=== PATIENT | female | born 1970 | race Caucasian/White ===

== ENCOUNTER 2016-07-18 11:05 | Day surgery (SDC) | payer BC ==
[2016-07-16 10:36] VITALS: BMI 51.2
[~2016-07-18 11:05] MED LIST: LACTATED RINGERS 1,000 ML IV SCH; LIDOCAINE 1% 20 ML VIAL (10MG/ML) FOR IV START INTRADERMA PRN
[2016-07-18 12:23] VITALS: RESP 16; TEMP 97
[2016-07-18 12:31] LABS: Glucose,Whole Blood 81 mg/dL (75-99)
[2016-07-18] MEDS ORDERED: PROPOFOL 10 MG/ML 20 ML VIAL IV ONE (13:28)
--- NOTE | 2016-07-18 13:34 | P.GSHP ---
History of Present Illness H&P Date: 07/18/16 Chief Complaint: GERD This is a 45-year-old female referred from Dr. Montgomery. She presents today for EGD . She is undergoing workup for sleeve gastrectomy. Her BMI is 51. She's had issues with reflux. Past Medical History Past Medical History: Asthma, GERD/Reflux, Osteoarthritis (OA) Additional Past Medical History / Comment(s): HX Recurring ovarian/uterine tumors - Hysterectomy. Asthma Seasonal. BLOOD PRESSURE FLUCTUATES. HYPOGLYEMIA. TINNITUS. History of Any Multi-Drug Resistant Organisms: None Reported Past Surgical History: Adenoidectomy, Cholecystectomy, Hysterectomy, Orthopedic Surgery, Tonsillectomy Additional Past Surgical History / Comment(s): Total right hip replacement 2013. Right rotator cuff surgery x2. EGD. Past Anesthesia/Blood Transfusion Reactions: Previous Problems w/ Anesthesia, Motion Sickness Additional Past Anesthesia/Blood Transfusion Reaction / Comment(s): LONG TIME TO AWAKEN LONG AGO. Past Psychological History: No Psychological Hx Reported Smoking Status: Former smoker Past Alcohol Use History: Occasional Additional Past Alcohol Use History / Comment(s): SMOKED 15 YEARS, 1 PPD, Quit 1996. Past Drug Use History: None Reported Additional Drug Use History / Comment(s): weekend social drinker - Past Family History Mother Family Medical History: Hypertension Additional Family Medical History / Comment(s): hypoglycemia, anemia, Father Family Medical History: Congestive Heart Failure (CHF), Rheumatoid Arthritis (RA ) Additional Family Medical History / Comment(s): brittle bones secondary to steroid therapy for RA Medications and Allergies Home Medications Medication Instructions Recorded Confirmed Type Cholecalciferol [Vitamin D3] 1,000 unit PO DAILY 06/18/16 07/18/16 History Ibuprofen [Motrin] 200 - 400 mg PO Q6HR PRN 06/18/16 07/18/16 History Primatene 1 tab PO DAILY PRN 07/16/16 07/18/16 History Allergies Allergy/AdvReac Type Severity Reaction Status Date / Time Penicillins Allergy Severe Anaphylaxis Verified 07/18/16 12:22 cephalexin [From Keflex] Allergy Anaphylaxis Verified 07/18/16 12:22 codeine Allergy Anaphylaxis Verified 07/18/16 12:22 phentermine [From Adipex-P] Allergy Anaphylaxis Verified 07/18/16 12:22 morphine AdvReac Nausea & Verified 01/18/17 12:22 Vomiting propoxyphene [From Darvon] AdvReac Hallucinati Verified 07/18/16 12:22 ons Surgical - Exam Vital Signs Temp Pulse Resp BP Pulse Ox 97.0 F L 83 16 154/91 98 07/18/16 12:17 07/18/16 12:17 07/18/16 12:17 07/18/16 12:17 07/18/16 12:17 - General well developed, no distress - Eyes PERRL - ENT normal pinna - Neck no masses - Respiratory normal expansion - Cardiovascular Rhythm: regular - Abdomen Abdomen: soft, non tender Assessment and Plan Plan: GERD Morbid obesity We will perform EGD.
--- NOTE | 2016-07-18 13:43 | P.OP ---
Date of Procedure: 07/18/16 Preoperative Diagnosis: GERD Postoperative Diagnosis: Antral gastritis Hiatal hernia Esophagitis Procedure(s) Performed: EGD Anesthesia: MAC Surgeon: Aaron Herrera Pathology: other (Antrum, esophagus) Condition: stable Disposition: PACU Description of Procedure: The patient's placed on the endoscopy table in the lateral position. She received IV sedation. The gastroscope was oropharynx and passed into the esophagus and into the stomach. Scope was then placed through the pylorus. The first and second portion of the duodenum appeared normal. Scope was then brought back the antrum and this appeared moderately inflamed. A biopsy was performed. Scope was then retroflexed and the remainder some appeared normal. There was a hiatal hernia seen. The GE junction was at 38 cm. The distal esophagus appeared mildly inflamed and a biopsy was performed. The proximal esophagus appeared normal. The scope was withdrawn for patient.
[2016-07-18 13:59] VITALS: BP 165/90; PULSE 82
== END 2016-07-18 14:18 | disposition home or self-care (01) ==
LOC: ORWHC2ENDO 11:05
PROVIDERS: ATTEND Surgery
DX: K20.0 Eosinophilic esophagitis (principal); K44.9 Diaphragmatic hernia without obstruction or gangrene; K29.50 Unspecified chronic gastritis without bleeding; Z87.891 Personal history of nicotine dependence; Z88.5 Allergy status to narcotic agent; Z88.0 Allergy status to penicillin; Z88.8 Allergy status to other drugs, medicaments and biological substances; Z88.1 Allergy status to other antibiotic agents
CPT/HCPCS: 88305; 88342; 43239; J2704

== ENCOUNTER → 2016-07-30 | Outpatient (CLI) | payer BC ==
[2016-07-30 13:19] VITALS: PULSE 78; RESP 18; TEMP 97; BMI 50.3
[2016-07-30 13:23] VITALS: BP 140/90
--- NOTE | 2016-07-30 13:59 | P.HPBAR ---
Bariatric H&P - History & Physicial H&P Date: 07/30/16 History & Physicial: Visit/CC: EGD folow-Up Patient initial contact: Initial weight: 125.872 kg Initial weight in pounds: 277.50 Height: 5 ft 2.5 in Initial BMI: 49.9 Last weight: Current weight: 127.034 kg Current weight in pounds: 280.00 Current BMI: 50.3 [place] body weight (based on NIH guidelines): 51.029 kg Excess body weight loss: The patient is a 45 year-old F who presents for Bariatric Assessment. The patient presents for bariatric follow. She is undergoing workup for sleeve gastrectomy. Patient recently had a EGD performed which showed evidence of antral gastritis as well as GERD. Patient's currently treated with omeprazole. Past Medical History Past Medical History: Asthma, GERD/Reflux, Osteoarthritis (OA) Additional Past Medical History / Comment(s): HX Recurring ovarian/uterine tumors - Hysterectomy. Asthma Seasonal. BLOOD PRESSURE FLUCTUATES. HYPOGLYEMIA. TINNITUS. History of Any Multi-Drug Resistant Organisms: None Reported Past Surgical History: Adenoidectomy, Cholecystectomy, Hysterectomy, Orthopedic Surgery, Tonsillectomy Additional Past Surgical History / Comment(s): Total right hip replacement 2013. Right rotator cuff surgery x2. EGD. Past Anesthesia/Blood Transfusion Reactions: Previous Problems w/ Anesthesia, Motion Sickness Additional Past Anesthesia/Blood Transfusion Reaction / Comm: LONG TIME TO AWAKEN LONG AGO. Past Psychological History: No Psychological Hx Reported Smoking Status: Former smoker Past Alcohol Use History: Occasional Additional Past Alcohol Use History / Comment(s): SMOKED 15 YEARS, 1 PPD, Quit 1996. Past Drug Use History: None Reported Additional Drug Use History / Comment(s): weekend social drinker - Past Family History Mother Family Medical History: Hypertension Additional Family Medical History / Comment(s): hypoglycemia, anemia, Father Family Medical History: Congestive Heart Failure (CHF), Rheumatoid Arthritis (RA ) Additional Family Medical History / Comment(s): brittle bones secondary to steroid therapy for RA Surgical - Exam Vital Signs Temp Pulse Resp BP 97.0 F L 78 18 140/90 07/30/16 13:16 07/30/16 13:16 07/30/16 13:16 07/30/16 13:16 - General well developed, no distress - Eyes PERRL - ENT normal pinna - Neck no masses - Respiratory normal expansion - Cardiovascular Rhythm: regular - Abdomen Abdomen: soft, non tender Bariatric Assessment & Plan Plan: Morbid obesity with BMI 51. Patient will be scheduled for her sleeve gastrectomy in August. She will undergo psychologiic consultations month. Bariatric Checklist Checklist: Plan: Checklist: EGD: 1. Hiatal hernia: 2. H. Pylori: HgbA1c: Vitamin D: Smoking: Former smoker Primary care physician referral: miller (ubly) Psychiatry clearance: Cardiology clearance: Sleep study: Diet journal: VTE risk score: VTE risk level: Rehab needs at discharge:
== END | disposition home or self-care (01) ==
LOC: BARWHC3 12:53
PROVIDERS: ATTEND Surgery
DX: Z01.812 Encounter for preprocedural laboratory examination (principal); E66.01 Morbid (severe) obesity due to excess calories; Z68.43 Body mass index [BMI] 50.0-59.9, adult; K29.70 Gastritis, unspecified, without bleeding; K21.9 Gastro-esophageal reflux disease without esophagitis; Z79.899 Other long term (current) drug therapy; Z87.891 Personal history of nicotine dependence
CPT/HCPCS: 99211

== ENCOUNTER → 2016-09-10 | Outpatient (CLI) | payer BC ==
[2016-09-10 12:45] VITALS: BMI 50.2
== END | disposition home or self-care (01) ==
LOC: BARWHC3 08:37
PROVIDERS: ATTEND Surgery
DX: E66.01 Morbid (severe) obesity due to excess calories (principal); Z71.3 Dietary counseling and surveillance; Z68.43 Body mass index [BMI] 50.0-59.9, adult
CPT/HCPCS: 97804

== ENCOUNTER → 2016-09-10 | Outpatient (CLI) | payer BC ==
[2016-09-10 12:17] LABS: EKG EKG PERFORMED
[2016-09-10 12:48] LABS: Basophils # (A) 0.1 k/uL (0-0.2); Basophils % (A) 1 %; CH 29.6; CHCM 33.5; Eosinophils # (A) 0.2 k/uL (0-0.7); Eosinophils % (A) 2 %; HDW 2.78; HGB 14.4 gm/dL (11.4-16.0); Luc # (Auto) 0.33; Luc % (Auto) 4; Lymphocytes # (A) 2.5 k/uL (1.0-4.8); Lymphocytes % (A) 32 %; MCH 29.1 pg (25.0-35.0); MCHC 32.7 g/dL (31.0-37.0); MCV 89.1 fL (80.0-100.0); Monocytes # (A) 0.3 k/uL (0-1.0); Monocytes % (A) 3 %; Neutrophils # (A) 4.6 k/uL (1.3-7.7); Neutrophils % (A) 58 %; RBC 4.94 m/uL (3.80-5.40); WBC 7.9 k/uL (3.8-10.6)
[2016-09-10 13:00] LABS: ALT 43 U/L (9-52); AST 29 U/L (14-36); Alkaline Phosphatase 116 U/L (38-126); Anion Gap 13 mmol/L; Blood Urea Nitrogen 19 mg/dL (7-17); Calcium 10.1 mg/dL (8.4-10.2); Carbon Dioxide 28 mmol/L (22-30); Chloride 101 mmol/L (98-107); Glucose 96 mg/dL (74-99); Non-African American GFR(MDRD) >60 (>60 ml/min/1.73 sqM); Potassium 4.6 mmol/L (3.5-5.1); Sodium 142 mmol/L (137-145); Total Bilirubin 0.8 mg/dL (0.2-1.3); Total Protein 8.3 g/dL (6.3-8.2)
[2016-09-10 13:48] LABS: Hemoglobin A1C 5.5 % (4.2-6.1)
== END | disposition home or self-care (01) ==
LOC: LABPAT 12:08
PROVIDERS: ATTEND Surgery
DX: Z01.818 Encounter for other preprocedural examination (principal)
CPT/HCPCS: 80053; 83036; 85025; 93005

== ENCOUNTER 2016-09-24 06:34 | Inpatient (IN) | payer BC ==
[2016-09-17 11:34] VITALS: BMI 50.5
[~2016-09-24 06:34] MED LIST changes: +ACETAMINOPHEN TAB 500 MG TAB PO ONE; +CLINDAMYCIN 900 MG in DEXTROSE 5% IN WATER 50 ML IVPB ONE; +DEXAMETHASONE SOD PHOSPHATE 10 MG/ML 1 ML VIAL IV ONE; +ENOXAPARIN 40 MG/0.4 ML SYRINGE SQ ONE; +GENTAMICIN 400 MG in SODIUM CHLORIDE 0.9% 100 ML IVPB ONE; -LIDOCAINE 1% 20 ML VIAL (10MG/ML) FOR IV START INTRADERMA PRN; +MIDAZOLAM 2 MG/2 ML VIAL IV PRN; +ONDANSETRON 4 MG/2 ML VIAL IVP ONE; +SCOPOLAMINE 1.5MG/72HR PATCH TRANSDERM ONE; +fentaNYL (PF) 50 MCG/ML 2 ML AMP IV PRN
[2016-09-24] MEDS ORDERED: LIDOCAINE 1% 20 ML VIAL (10MG/ML) FOR IV START IV ONE (07:00)
[2016-09-24 07:01] LABS: Glucose,Whole Blood 91 mg/dL (75-99)
[2016-09-24] MEDS ORDERED: METHYLENE BLUE 15 MG in SODIUM CHLORIDE 0.9% 500 ML IRRIGATION ONE (07:08)
[2016-09-24] MEDS ORDERED: METHYLENE BLUE 10 MG/ML 1 ML VIAL IRRIGATION ONE (07:32)
[2016-09-24] MEDS ORDERED: BUPIVACAIN-EPI 0.25%-1:200,000 30 ML VIAL SQ ONE ×2 (07:33)
--- NOTE | 2016-09-24 07:54 | P.GSHP ---
History of Present Illness H&P Date: 09/24/16 Chief Complaint: Morbid obesity This is a 45-year-old female who presents today for laparoscopic sleeve gastrectomy. Patient has had lifetime problems morbid obesity. Her BMI is 47. She presents today for laparoscopic sleeve gastrectomy. Patient's aware the risks of surgery including conversion to open procedure and injury to the stomach, liver and spleen. She is also aware of risk of gastric staple line disruption, bleeding or perforation. - Constitutional Constitutional: Reports as per HPI Past Medical History Past Medical History: Asthma, GERD/Reflux, Osteoarthritis (OA) Additional Past Medical History / Comment(s): HX Recurring ovarian/uterine tumors, Asthma Seasonal. HYPOGLYEMIA. TINNITUS. ocular migraines History of Any Multi-Drug Resistant Organisms: None Reported Past Surgical History: Adenoidectomy, Cholecystectomy, Hysterectomy, Orthopedic Surgery, Tonsillectomy Additional Past Surgical History / Comment(s): Total right hip replacement 2013. Right rotator cuff surgery x2. EGD. Past Anesthesia/Blood Transfusion Reactions: Previous Problems w/ Anesthesia, Motion Sickness Additional Past Anesthesia/Blood Transfusion Reaction / Comment(s): LONG TIME TO AWAKEN LONG AGO. Past Psychological History: No Psychological Hx Reported Smoking Status: Former smoker Past Alcohol Use History: Occasional Additional Past Alcohol Use History / Comment(s): SMOKED 15 YEARS, 1 PPD, Quit 1996. Past Drug Use History: None Reported Additional Drug Use History / Comment(s): weekend social drinker - Past Family History Mother Family Medical History: Hypertension Additional Family Medical History / Comment(s): hypoglycemia, anemia, Father Family Medical History: Congestive Heart Failure (CHF), Rheumatoid Arthritis (RA ) Additional Family Medical History / Comment(s): brittle bones secondary to steroid therapy for RA Medications and Allergies Home Medications Medication Instructions Recorded Confirmed Type Cholecalciferol [Vitamin D3] 1,000 unit PO DAILY 06/18/16 09/17/16 History Ibuprofen [Motrin] 200 - 400 mg PO HS PRN 06/18/16 09/17/16 History Primatene 1 tab PO DAILY PRN 07/16/16 09/17/16 History Allergies Allergy/AdvReac Type Severity Reaction Status Date / Time Penicillins Allergy Severe Anaphylaxis Verified 09/17/16 11:03 cephalexin [From Keflex] Allergy Anaphylaxis Verified 09/17/16 11:03 codeine Allergy Anaphylaxis Verified 09/17/16 11:03 phentermine [From Adipex-P] Allergy Anaphylaxis Verified 09/17/16 11:03 morphine AdvReac Nausea & Verified 09/17/16 11:03 Vomiting propoxyphene [From Darvon] AdvReac Hallucinati Verified 09/17/16 11:03 ons Surgical - Exam Vital Signs Temp Pulse Resp BP Pulse Ox 97.5 F L 85 18 120/77 99 09/24/16 06:51 09/24/16 06:51 09/24/16 06:51 09/24/16 06:51 09/24/16 06:51 BMI 47 - General well developed, no distress - Eyes PERRL - ENT normal pinna - Neck no masses - Respiratory normal expansion - Cardiovascular Rhythm: regular - Abdomen Abdomen: soft, non tender Assessment and Plan Plan: Morbid obesity. We'll perform laparoscopic sleeve gastrectomy.
[2016-09-24] MEDS ORDERED: NEOSTIGMINE 1 MG/ML 10 ML VIAL ONE (07:59)
[2016-09-24] MEDS ORDERED: GLYCOPYRROLATE 0.2 MG/ML 2 ML VIAL ONE (07:59)
[2016-09-24] MEDS ORDERED: SUCCINYLCHOLINE CHLORIDE 100 MG/5 ML SYR IV ONE (07:59)
[2016-09-24] MEDS ORDERED: PHENYLEPHRINE-0.9% NACL SYG 1 MG/10 ML SYRINGE ONE (07:59)
[2016-09-24] MEDS ORDERED: PROPOFOL 10 MG/ML 20 ML VIAL IV ONE (07:59)
[2016-09-24] MEDS ORDERED: LIDOCAINE 1% INJ 10MG/ML (20 ML MDV) ONE (07:59)
[2016-09-24] MEDS ORDERED: ROCURONIUM BROMIDE 10 MG/ML 10 ML VIAL IV ONE (07:59)
[2016-09-24] MEDS ORDERED: fentaNYL (PF) 50 MCG/ML 2 ML AMP ONE (07:59)
[2016-09-24] MEDS ORDERED: MIDAZOLAM 2 MG/2 ML VIAL ONE (07:59)
[2016-09-24] MEDS ORDERED: LACTATED RINGERS 1,000 ML IV ONE (08:45)
[2016-09-24] MEDS ORDERED: NALOXONE 0.4 MG/ML 1 ML VIAL IV PRN (09:17)
--- NOTE | 2016-09-24 09:17 | P.OP ---
Date of Procedure: 09/24/16 Preoperative Diagnosis: Morbid obesity BMI 47 Postoperative Diagnosis: Morbid obesity Adhesions Procedure(s) Performed: Laparoscopic sleeve gastrectomy Laparoscopic lysis of adhesions Anesthesia: ANDREE Surgeon: Aaron Herrera Estimated Blood Loss (ml): 5 Pathology: other (Gastric remnant) Condition: stable Disposition: PACU Description of Procedure: The patient's placed the operative table in the supine position. She received IV sedation. She then received general anesthesia. Her abdomen was prepped and draped usual sterile fashion after the placement was placed in dorsal 5 position. The skin incision sites were anesthetized 1% local Xylocaine. The skin was incised in the left lateral position and then using a 5 mm blade less trocar under direct visitation the peritoneal cavity is entered. The abdomen was insufflated and then after adequate insufflation the laparoscope was placed back the pleural cavity. The patient had a previous low midline incision there were adhesions noted in the upper abdomen. Next a 5 mm trocar was placed in the left epigastric position and then using the Harmonic scissors the adhesions in the right lateral position and midline area were lysed. Approximately 15 minutes of operative time used to lyse adhesions. Next a 5 mm trocar was placed in the right lateral position and then a 15 mm trocar was placed supraumbilical position and another 5 mm trocar was placed in the right epigastric position. The left lateral lobe of liver was retracted. The camera was placed into the left upper quadrant position. And then the stomach was visualized. The greater curvature stomach was then dissected using the Harmonic scissors. The Harmonic scissors were used to lyse the greater omentum and divided short gastric vessels. Curvature stomach. The dissection occurred a prostate 5 cm from the pylorus and was extended to the level of the left lulú. The stomach was completely mobilized. And then the 40-Kazakh bougie dilator was placed the oropharynx and passed into the esophagus by the COIN COLLECTOR. The sleeve gastrectomy was performed by sequential firings of the echelon stapler. Seam guard buttress material was used. The gastric remnant was then brought up through the 15 mm trocar site. The stomach was then insufflated with methylene blue normal saline. There is no infection extravasation. The 15 mm trocar site was then closed. Was done using a Milo Louis suture passer and 0 Vicryl suture. The wound was then irrigated. The skin was closed interrupted 3-0 Monocryl suture. Dermabond was applied. Patient was sent to recovery room stable condition.
[2016-09-24] MEDS: HYDROmorphone 1 MG/ML 1 ML SYRINGE IVP ONE ×2 (09:36→10:10)
[2016-09-24] MEDS: ALBUTEROL NEBULIZED 2.5 MG/3 ML INHALATION SCH ×3 (11:16→19:53)
[2016-09-24] MEDS: ONDANSETRON 4 MG/2 ML VIAL IVP PRN ×2 (13:40→22:50)
[2016-09-24] MEDS: HYDROmorphone 1 MG/ML 1 ML SYRINGE IVP PRN ×3 (13:40→22:51)
[2016-09-24] MEDS: 0.9% NACL WITH KCL 20 MEQ/L 1,000 ML IV SCH ×3 (13:40→23:50)
[2016-09-25] MEDS ORDERED: ACETAMINOPHEN IV (For NPO) 1,000 MG in EMPTY BAG 1 BAG IVPB STA (07:19)
[2016-09-25 07:41] LABS: Basophils % (A) 0 %; CH 29.1; CHCM 32.9; Eosinophils % (A) 0 %; HCT 38.5 % (34.0-46.0); HDW 2.59; HGB 12.6 gm/dL (11.4-16.0); Luc # (Auto) 0.19; Luc % (Auto) 2; Lymphocytes # (A) 1.5 k/uL (1.0-4.8); Lymphocytes % (A) 13 %; MCH 29.1 pg (25.0-35.0); MCHC 32.7 g/dL (31.0-37.0); MCV 88.9 fL (80.0-100.0); Mean Platelet Volume 8.1; Monocytes # (A) 0.5 k/uL (0-1.0); Monocytes % (A) 4 %; Neutrophils # (A) 9.4 k/uL (1.3-7.7); Neutrophils % (A) 81 %; RBC 4.33 m/uL (3.80-5.40); RDW 13.4 % (11.5-15.5); WBC 11.6 k/uL (3.8-10.6); WBC (Perox) 12.15
[2016-09-25 07:49] LABS: Anion Gap 11 mmol/L; Blood Urea Nitrogen 13 mg/dL (7-17); Calcium 9.1 mg/dL (8.4-10.2); Carbon Dioxide 25 mmol/L (22-30); Chloride 105 mmol/L (98-107); Magnesium 1.8 mg/dL (1.6-2.3); Non-African American GFR(MDRD) >60 (>60 ml/min/1.73 sqM); Phosphorous 3.1 mg/dL (2.5-4.5); Potassium 4.6 mmol/L (3.5-5.1); Sodium 141 mmol/L (137-145)
[2016-09-25] MEDS: ALBUTEROL NEBULIZED 2.5 MG/3 ML INHALATION SCH ×2 (07:56→10:55)
[2016-09-25] MEDS ORDERED: ENOXAPARIN 40 MG/0.4 ML SYRINGE SQ SCH (09:00)
[2016-09-25] MEDS ORDERED: PANTOPRAZOLE 40 MG/10 ML VIAL IV SCH (09:00)
--- NOTE | 2016-09-25 09:15 | FL ---
EXAMINATION TYPE: FL UGI DATE OF EXAM: 09/25/2016 8:42 AM LIMITED UGI: CLINICAL HISTORY: Morbid Obesity, gastric sleeve surgery yesterday. TECHNIQUE: Limited esophagram is performed utilizing 20 oz of Omnipaque 350. A total of 67 seconds o f fluoroscopic time was utilized during procedure. COMPARISON: None. FINDINGS: The patient swallowed contrast without difficulty or delay. Esophageal peristalsis and mo tility are within normal limits. There is mild delay of flow of contrast along the diaphragmatic hia tus into proximal gastric sleeve. There is mild delay of flow from distal sleeve into pylorus and duo denal sweep. Patient has some nausea throughout. There is no evidence of contrast extravasation to tsai ggest leak. Cholecystectomy clips are noted. IMPRESSION: No evidence of leak or significant obstruction status post gastric sleeve surgery yesterd ay.
[2016-09-25 09:52] VITALS: BP 148/87; RESP 15; TEMP 98.6
[2016-09-25 11:27] VITALS: PULSE 80
[2016-09-25] MEDS: 0.9% NACL WITH KCL 20 MEQ/L 1,000 ML IV SCH (11:58)
--- NOTE | 2016-09-27 07:07 | CONS ---
DATE OF CONSULTATION: DATE OF SERVICE: 09/24/2016 CHIEF COMPLAINT: A 45-year-old, status post gastric sleeve for medical management consult. She is having oxygen levels low at 92% on 2 L at this time. She has a history of asthma. Otherwise is pretty much healthy at home. Review of systems negative except for as mentioned in HPI. MEDICATIONS: Please see list. PHYSICAL EXAM: O2 sat is 92% on 2 L. CARDIOVASCULAR: S1, S2. LUNGS: Mild wheezes x4. Decreased breath sounds at the base. HEMATOLOGIC: Negative Homans. VASCULAR: Normal dorsalis pedis, posterior tibial and radial pulse. NEUROLOGIC: Alert and oriented x3. PSYCH: Fair mood and affect. ASSESSMENT: 1. Status post gastric sleeve. 2. Obesity. 3. Acute hypoxemia. Will do updraft treatments as needed with albuterol. Continue to blow into incentive spirometry. Will monitor her closely due to her low oxygen levels on 2 L.
--- NOTE | 2016-09-27 07:13 | PN ---
SUBJECTIVE: A 45-year-old white female. She is up ambulating today. Her ( ) chest is improved. CARDIOVASCULAR: S1 and S2. LUNGS: Clear. Oxygen level is in the high 90s on room air now. ASSESSMENT: Hypoxemia in postoperative ( ) was improved. Home medicines will be continued and started. She will be sent home today most likely as diet is advanced and she will continue to ambulate. Thank you Dr. Herrera.
--- NOTE | 2016-12-14 12:59 | P.DS ---
Providers Date of admission: 09/24/16 06:34 Expected date of discharge: 09/25/16 Attending physician: Aaron Herrera Consults: 09/24/16 09:17 Consult Physician Routine Consulting Provider: Pancho Liriano Consult Reason/Comments: Medical management Do you want consulting provider notified?: Yes Primary care physician: Stated None Hospital Course: Is a 38-year-old female who underwent laparoscopic sleeve gastrectomy. Patient' s postoperative stay was unremarkable. Please see hospital chart for details. Procedures: Deepak sleeve gastrectomy Patient Condition at Discharge: Good Plan - Discharge Summary New Discharge Prescriptions: New Omeprazole [PriLOSEC] 40 mg PO DAILY #30 capsule. Ondansetron Odt [Zofran ODT] 8 mg PO Q8HR #20 tab Sucralfate [Carafate] 1 gm PO TID #90 tablet Acetaminophen Tab [Tylenol] 1,000 mg PO Q6HR #56 tablet Continue Cholecalciferol [Vitamin D3] 1,000 unit PO DAILY Primatene 1 tab PO DAILY PRN PRN Reason: ASTHMA SX Discontinued Ibuprofen [Motrin] 200 - 400 mg PO HS PRN PRN Reason: Pain Discharge Medication List Cholecalciferol [Vitamin D3] 1,000 unit PO DAILY 06/18/16 [History] Primatene 1 tab PO DAILY PRN 07/16/16 [History] Omeprazole [PriLOSEC] 40 mg PO DAILY #30 capsule. 09/24/16 [Rx] Ondansetron Odt [Zofran ODT] 8 mg PO Q8HR #20 tab 09/24/16 [Rx] Sucralfate [Carafate] 1 gm PO TID #90 tablet 09/24/16 [Rx] Acetaminophen Tab [Tylenol] 1,000 mg PO Q6HR #56 tablet 09/25/16 [Rx] Follow up Appointment(s)/Referral(s): Pancho Liirano MD [STAFF PHYSICIAN] - 10/01/16 1:30 pm Aaron Herrera MD [STAFF PHYSICIAN] - 10/08/16 2:40 pm (In the bariatric center ) Patient Instructions/Handouts: Laparoscopic Sleeve Gastrectomy (DC) Activity/Diet/Wound Care/Special Instructions: No heavy lifting, pushing, or pulling items greater than 10 pounds. Bariatric diet. No caffeinated beverages or straws. Shower daily, no soaking in bath tubs, pools, or hot tubs. No driving while taking pain medication. Notify surgeon with any signs or symptoms of infection, increased pain, or not tolerating diet. Discharge Disposition: HOME SELF-CARE
== END 2016-09-25 14:30 | disposition home or self-care (01) | DRG 621 ==
LOC: 2ORWHC 06:34 → 3SUR 09:09
PROVIDERS: ADMIT Surgery; ATTEND Surgery
PROC: 0DB64Z3 Excision of Stomach, Percutaneous Endoscopic Approach, Vertical (ICD-10-PCS; principal; 2016-09-24 07:40)
DX: E66.01 Morbid (severe) obesity due to excess calories (principal); J45.909 Unspecified asthma, uncomplicated; K66.0 Peritoneal adhesions (postprocedural) (postinfection); R09.02 Hypoxemia; K21.9 Gastro-esophageal reflux disease without esophagitis; M19.90 Unspecified osteoarthritis, unspecified site; Z82.49 Family history of ischemic heart disease and other diseases of the circulatory system; Z96.641 Presence of right artificial hip joint; Z87.891 Personal history of nicotine dependence; Z68.42 Body mass index [BMI] 45.0-49.9, adult; Z79.1 Long term (current) use of non-steroidal anti-inflammatories (NSAID); Z79.899 Other long term (current) drug therapy; Z88.1 Allergy status to other antibiotic agents; Z88.5 Allergy status to narcotic agent; Z88.0 Allergy status to penicillin; Z88.8 Allergy status to other drugs, medicaments and biological substances; Z87.42 Personal history of other diseases of the female genital tract; Z90.49 Acquired absence of other specified parts of digestive tract; Z90.710 Acquired absence of both cervix and uterus; Z82.61 Family history of arthritis; Z83.2 Family history of diseases of the blood and blood-forming organs and certain disorders involving the immune mechanism; Z83.49 Family history of other endocrine, nutritional and metabolic diseases; Z86.69 Personal history of other diseases of the nervous system and sense organs
CPT/HCPCS: 74240; 80051; 82310; 82565; 83735; 84100; 84520; 85025; 88307; 94640; 94760

== ENCOUNTER → 2016-10-22 | Outpatient (CLI) | payer BC ==
[2016-10-22 15:57] VITALS: BP 140/85; PULSE 81; RESP 16; TEMP 97.8; BMI 44.5
--- NOTE | 2016-10-22 16:49 | P.HPBAR ---
Bariatric H&P - History & Physicial H&P Date: 10/22/16 History & Physicial: Visit/CC: Sleeve follow-up Patient initial contact: Initial weight: 125.872 kg Initial weight in pounds: 277.50 Height: 5 ft 2.25 in Initial BMI: 50.3 Last weight: Current weight: 111.357 kg Current weight in pounds: 245.00 Current BMI: 44.5 [place] body weight (based on NIH guidelines): 50.462 kg Excess body weight loss: 19.5% The patient is a 46 year-old F who presents for Bariatric Assessment. The patient presents today for sleeve gastrectomy follow-up. She is doing quite well. She is approximately 1 month postoperatively. Past Medical History Past Medical History: Asthma, GERD/Reflux, Osteoarthritis (OA) Additional Past Medical History / Comment(s): HX Recurring ovarian/uterine tumors, Asthma Seasonal. HYPOGLYEMIA. TINNITUS. ocular migraines History of Any Multi-Drug Resistant Organisms: None Reported Past Surgical History: Adenoidectomy, Cholecystectomy, Hysterectomy, Orthopedic Surgery, Tonsillectomy Additional Past Surgical History / Comment(s): Total right hip replacement 2013. Right rotator cuff surgery x2. EGD. Past Anesthesia/Blood Transfusion Reactions: Previous Problems w/ Anesthesia, Motion Sickness Additional Past Anesthesia/Blood Transfusion Reaction / Comm: LONG TIME TO AWAKEN LONG AGO. Past Psychological History: No Psychological Hx Reported Smoking Status: Former smoker Past Alcohol Use History: Occasional Additional Past Alcohol Use History / Comment(s): SMOKED 15 YEARS, 1 PPD, Quit 1996. Past Drug Use History: None Reported Additional Drug Use History / Comment(s): weekend social drinker - Past Family History Mother Family Medical History: Hypertension Additional Family Medical History / Comment(s): hypoglycemia, anemia, Father Family Medical History: Congestive Heart Failure (CHF), Rheumatoid Arthritis (RA ) Additional Family Medical History / Comment(s): brittle bones secondary to steroid therapy for RA Surgical - Exam Vital Signs Temp Pulse Resp BP 97.8 F 81 16 140/85 10/22/16 15:55 10/22/16 15:55 10/22/16 15:55 10/22/16 15:55 - General well developed, no distress - Eyes PERRL - ENT normal pinna - Neck no masses - Respiratory normal expansion - Cardiovascular Rhythm: regular - Abdomen Abdomen: soft, non tender Bariatric Assessment & Plan Plan: The patient has 3/2 weeks postoperative. She is doing quite well. Her incision sites are clean and intact. She will follow-up in one month Bariatric Checklist Checklist: Plan: Checklist: EGD: 1. Hiatal hernia: 2. H. Pylori: HgbA1c: Vitamin D: Smoking: Former smoker Primary care physician referral: miller (ubly) Psychiatry clearance: Cardiology clearance: Sleep study: Diet journal: VTE risk score: VTE risk level: Rehab needs at discharge:
== END | disposition home or self-care (01) ==
LOC: BARWHC3 14:50
PROVIDERS: ATTEND Surgery
DX: Z48.815 Encounter for surgical aftercare following surgery on the digestive system (principal); E66.01 Morbid (severe) obesity due to excess calories; Z68.41 Body mass index [BMI] 40.0-44.9, adult; Z71.3 Dietary counseling and surveillance; Z98.84 Bariatric surgery status; Z87.891 Personal history of nicotine dependence
CPT/HCPCS: 97803; 99211

== ENCOUNTER → 2017-01-21 | Outpatient (CLI) | payer BC ==
[2017-01-21 15:45] VITALS: BP 141/89; PULSE 60; RESP 16; TEMP 98.3; BMI 34.9
--- NOTE | 2017-01-21 16:36 | P.HPBAR ---
Bariatric H&P - History & Physicial H&P Date: 01/21/17 History & Physicial: Visit/CC: Sleeve follow up Patient initial contact: Initial weight: 125.872 kg Initial weight in pounds: 277.50 Height: 5 ft 2.5 in Initial BMI: 49.9 Last weight: Current weight: 87.997 kg Current weight in pounds: 194.00 Current BMI: 34.9 [place] body weight (based on NIH guidelines): 51.029 kg Excess body weight loss: 50.6% The patient is a 46 year-old F who presents for Bariatric Assessment. The patient presents today for sleeve gastrectomy fall. She's not is seen in 3 months. She has done well. She is last prostate 45 pounds since her last visit. He's had some minor GERD symptoms. Her arthritis is improved. Past Medical History Past Medical History: Asthma, GERD/Reflux, Osteoarthritis (OA) Additional Past Medical History / Comment(s): HX Recurring ovarian/uterine tumors, Asthma Seasonal. HYPOGLYEMIA. TINNITUS. ocular migraines History of Any Multi-Drug Resistant Organisms: None Reported Past Surgical History: Adenoidectomy, Cholecystectomy, Hysterectomy, Orthopedic Surgery, Tonsillectomy Additional Past Surgical History / Comment(s): Total right hip replacement 2013. Right rotator cuff surgery x2. EGD. Past Anesthesia/Blood Transfusion Reactions: Previous Problems w/ Anesthesia, Motion Sickness Additional Past Anesthesia/Blood Transfusion Reaction / Comm: LONG TIME TO AWAKEN LONG AGO. Past Psychological History: No Psychological Hx Reported Smoking Status: Former smoker Past Alcohol Use History: Occasional Additional Past Alcohol Use History / Comment(s): SMOKED 15 YEARS, 1 PPD, Quit 1996. Past Drug Use History: None Reported Additional Drug Use History / Comment(s): weekend social drinker - Past Family History Mother Family Medical History: Hypertension Additional Family Medical History / Comment(s): hypoglycemia, anemia, Father Family Medical History: Congestive Heart Failure (CHF), Rheumatoid Arthritis (RA ) Additional Family Medical History / Comment(s): brittle bones secondary to steroid therapy for RA Surgical - Exam Vital Signs Temp Pulse Resp BP 98.3 F 60 16 141/89 01/21/17 15:42 01/21/17 15:42 01/21/17 15:42 01/21/17 15:42 - General well developed - Abdomen Abdomen: soft, non tender Bariatric Assessment & Plan Plan: The sleeve gastrectomy. Patient's had excellent weight loss. Her GERD symptoms are minimal will be observed. Her arthritis has resolved. She'll follow-up in one month. Bariatric Checklist Checklist: Plan: Checklist: EGD: 1. Hiatal hernia: 2. H. Pylori: HgbA1c: Vitamin D: Smoking: Former smoker Primary care physician referral: miller (ubly) Psychiatry clearance: Cardiology clearance: Sleep study: Diet journal: VTE risk score: VTE risk level: Rehab needs at discharge:
[2017-01-21 16:54] LABS: CH 30.1; CHCM 33.5; HCT 40.5 % (34.0-46.0); HDW 2.56; HGB 13.6 gm/dL (11.4-16.0); MCH 30.5 pg (25.0-35.0); MCHC 33.7 g/dL (31.0-37.0); MCV 90.5 fL (80.0-100.0); Mean Platelet Volume 9.4; RBC 4.47 m/uL (3.80-5.40); WBC 6.2 k/uL (3.8-10.6)
[2017-01-21 17:01] LABS: ALT 44 U/L (9-52); AST 34 U/L (14-36); Alkaline Phosphatase 77 U/L (38-126); Anion Gap 11 mmol/L; Blood Urea Nitrogen 13 mg/dL (7-17); Calcium 9.9 mg/dL (8.4-10.2); Carbon Dioxide 27 mmol/L (22-30); Chloride 105 mmol/L (98-107); Glucose 88 mg/dL (74-99); Iron 45 ug/dL (37-170); Non-African American GFR(MDRD) >60 (>60 ml/min/1.73 sqM); Potassium 4.4 mmol/L (3.5-5.1); Sodium 143 mmol/L (137-145)
[2017-01-21 17:12] LABS: % Iron Saturation 14.1 % (20-50); Prealbumin 23 mg/dL (18-36); Total Iron Binding Capacity 320 ug/dL (265-497)
[2017-01-21 18:07] LABS: Vitamin B12 424 pg/mL (239-931)
== END | disposition home or self-care (01) ==
LOC: BARWHC3 14:45
PROVIDERS: ATTEND Surgery
DX: Z48.815 Encounter for surgical aftercare following surgery on the digestive system (principal); K21.9 Gastro-esophageal reflux disease without esophagitis; E66.01 Morbid (severe) obesity due to excess calories; D50.8 Other iron deficiency anemias; E44.0 Moderate protein-calorie malnutrition; E55.9 Vitamin D deficiency, unspecified; Z87.891 Personal history of nicotine dependence; Z98.84 Bariatric surgery status
CPT/HCPCS: 80053; 82306; 82607; 82728; 82746; 83540; 83550; 84134; 84425; 84443; 84590; 85027; 97803; 99211

== ENCOUNTER → 2017-04-01 | Outpatient (CLI) | payer BC ==
[2017-04-01 14:58] VITALS: BP 155/85; PULSE 46; RESP 16; TEMP 98.1; BMI 33.1
--- NOTE | 2017-04-01 15:24 | P.HPBAR ---
Bariatric H&P - History & Physicial H&P Date: 04/01/17 History & Physicial: Visit/CC: sleeve follow-up Patient initial contact: Initial weight: 125.872 kg Initial weight in pounds: 277.50 Height: 5 ft 2.5 in Initial BMI: 49.9 Last weight: Current weight: 83.461 kg Current weight in pounds: 184.00 Current BMI: 33.1 [place] body weight (based on NIH guidelines): 51.256 kg Excess body weight loss: 56.6% The patient is a 46 year-old F who presents for Bariatric Assessment. Patient presents today for sleeve gastrectomy follow-up. She is doing quite well. She' s had no real issues. She has had minimal GERD. Past Medical History Past Medical History: Asthma, GERD/Reflux, Osteoarthritis (OA) Additional Past Medical History / Comment(s): HX Recurring ovarian/uterine tumors, Asthma Seasonal. HYPOGLYEMIA. TINNITUS. ocular migraines History of Any Multi-Drug Resistant Organisms: None Reported Past Surgical History: Adenoidectomy, Cholecystectomy, Hysterectomy, Orthopedic Surgery, Tonsillectomy Additional Past Surgical History / Comment(s): Total right hip replacement 2013. Right rotator cuff surgery x2. EGD. Past Anesthesia/Blood Transfusion Reactions: Previous Problems w/ Anesthesia, Motion Sickness Additional Past Anesthesia/Blood Transfusion Reaction / Comm: LONG TIME TO AWAKEN LONG AGO. Past Psychological History: No Psychological Hx Reported Smoking Status: Former smoker Past Alcohol Use History: Occasional Additional Past Alcohol Use History / Comment(s): SMOKED 15 YEARS, 1 PPD, Quit 1996. Past Drug Use History: None Reported Additional Drug Use History / Comment(s): weekend social drinker - Past Family History Mother Family Medical History: Hypertension Additional Family Medical History / Comment(s): hypoglycemia, anemia, Father Family Medical History: Congestive Heart Failure (CHF), Rheumatoid Arthritis (RA ) Additional Family Medical History / Comment(s): brittle bones secondary to steroid therapy for RA Surgical - Exam Vital Signs Temp Pulse Resp BP 98.1 F 46 L 16 155/85 04/01/17 14:55 04/01/17 14:55 04/01/17 14:55 04/01/17 14:55 - General well developed, no distress - Eyes PERRL - ENT normal pinna - Neck no masses - Respiratory normal expansion - Cardiovascular Rhythm: regular - Abdomen Abdomen: soft, non tender Bariatric Assessment & Plan Plan: The patient is doing well. She'll follow-up in 2 months. Her GERD symptoms are minimal and will be observed. Bariatric Checklist Checklist: Plan: Checklist: EGD: 1. Hiatal hernia: 2. H. Pylori: HgbA1c: Vitamin D: Smoking: Former smoker Primary care physician referral: miller (ubly) Psychiatry clearance: Cardiology clearance: Sleep study: Diet journal: VTE risk score: VTE risk level: Rehab needs at discharge:
== END ==
LOC: BARWHC3 14:45
PROVIDERS: ATTEND Surgery
DX: Z48.815 Encounter for surgical aftercare following surgery on the digestive system (principal); Z98.84 Bariatric surgery status; Z87.891 Personal history of nicotine dependence
CPT/HCPCS: 97803; 99211

== ENCOUNTER → 2017-10-14 | Outpatient (CLI) | payer BC ==
[2017-10-14 16:15] VITALS: BP 152/90; PULSE 64; RESP 16; TEMP 98.3; BMI 29.8
--- NOTE | 2017-10-14 16:30 | P.HPBAR ---
Bariatric H&P - History & Physicial H&P Date: 10/14/17 History & Physicial: Visit/CC: sleeve follow up Patient initial contact: Initial weight: 125.872 kg Initial weight in pounds: 277.50 Height: 5 ft 2.5 in Initial BMI: 49.9 Last weight: 187 Current weight: 75.296 kg Current weight in pounds: 166.00 Current BMI: 29.8 [place] body weight (based on NIH guidelines): 51.029 kg Excess body weight loss: 67.5% The patient is a 47 year-old F who presents for Bariatric Assessment. Patient presents today for sleeve gastric a fall. She approximately 1 year from surgery. Patient is doing well. She is also 110 pounds Past Medical History Past Medical History: Asthma, GERD/Reflux, Osteoarthritis (OA) Additional Past Medical History / Comment(s): HX Recurring ovarian/uterine tumors, Asthma Seasonal. HYPOGLYEMIA. TINNITUS. ocular migraines History of Any Multi-Drug Resistant Organisms: None Reported Past Surgical History: Adenoidectomy, Cholecystectomy, Hysterectomy, Orthopedic Surgery, Tonsillectomy Additional Past Surgical History / Comment(s): Total right hip replacement 2013. Right rotator cuff surgery x2. EGD. Past Anesthesia/Blood Transfusion Reactions: Previous Problems w/ Anesthesia, Motion Sickness Additional Past Anesthesia/Blood Transfusion Reaction / Comm: LONG TIME TO AWAKEN LONG AGO. Smoking Status: Former smoker - Past Family History Mother Family Medical History: Hypertension Additional Family Medical History / Comment(s): hypoglycemia, anemia, Father Family Medical History: Congestive Heart Failure (CHF), Rheumatoid Arthritis (RA ) Additional Family Medical History / Comment(s): brittle bones secondary to steroid therapy for RA Surgical - Exam Vital Signs Temp Pulse Resp BP 98.3 F 64 16 152/90 10/14/17 16:13 10/14/17 16:13 10/14/17 16:13 10/14/17 16:13 - General well developed, no distress - Eyes PERRL - ENT normal pinna - Neck no masses - Respiratory normal expansion - Abdomen Abdomen: soft, non tender Bariatric Assessment & Plan Plan: Status post sleeve gastrectomy. Patient is doing excellent. She's had some minimal GERD symptoms which will be observed. She'll follow-up in 6 months. Bariatric Checklist Checklist: Plan: Checklist: EGD: 1. Hiatal hernia: 2. H. Pylori: HgbA1c: Vitamin D: Smoking: Former smoker Primary care physician referral: miller (ubly) Psychiatry clearance: Cardiology clearance: Sleep study: Diet journal: VTE risk score: VTE risk level: Rehab needs at discharge:
[2017-10-14 17:03] LABS: HCT 38.6 % (34.0-46.0); HGB 13.3 gm/dL (11.4-16.0); MCHC 34.5 g/dL (31.0-37.0); MCV 89.8 fL (80.0-100.0); Mean Platelet Volume 7.7; Platelet Count 257 k/uL (150-450); RBC 4.29 m/uL (3.80-5.40); RDW 12.5 % (11.5-15.5); WBC 6.7 k/uL (3.8-10.6)
[2017-10-14 17:39] LABS: ALT 29 U/L (9-52); AST 29 U/L (14-36); Albumin 4.3 g/dL (3.5-5.0); Alkaline Phosphatase 79 U/L (38-126); Anion Gap 13 mmol/L; Blood Urea Nitrogen 15 mg/dL (7-17); Carbon Dioxide 30 mmol/L (22-30); Chloride 101 mmol/L (98-107); Glucose 90 mg/dL (74-99); Potassium 4.6 mmol/L (3.5-5.1); Sodium 144 mmol/L (137-145); Total Bilirubin 0.5 mg/dL (0.2-1.3); Total Protein 7.1 g/dL (6.3-8.2)
== END | disposition home or self-care (01) ==
LOC: BARWHC3 15:28
PROVIDERS: ATTEND Surgery
DX: Z09 Encounter for follow-up examination after completed treatment for conditions other than malignant neoplasm (principal); K21.9 Gastro-esophageal reflux disease without esophagitis; E66.01 Morbid (severe) obesity due to excess calories; M19.90 Unspecified osteoarthritis, unspecified site; J45.998 Other asthma; E55.9 Vitamin D deficiency, unspecified; E44.0 Moderate protein-calorie malnutrition; Z90.49 Acquired absence of other specified parts of digestive tract; Z90.710 Acquired absence of both cervix and uterus; Z98.890 Other specified postprocedural states; Z90.89 Acquired absence of other organs; Z96.641 Presence of right artificial hip joint; Z87.891 Personal history of nicotine dependence; Z68.29 Body mass index [BMI] 29.0-29.9, adult; Z98.84 Bariatric surgery status
CPT/HCPCS: 36415; 80053; 82306; 84443; 85027; 97803; 99211